=== PATIENT | female | born 1980 | race Caucasian/White ===

== ENCOUNTER 2023-03-08 21:44 | Emergency (ER) | payer MEDICARE, MEDICAID ==
[~2023-03-08] VITALS: Ht 162.6 cm; Wt 71.8 kg
[~2023-03-08 21:44] MED LIST: CELEXA10 MG PO; CIPRO 500MG TA500 MG PO; CLONAZEPAM1 MG PO; CLONIDINE0.1 MG PO; GEODON80 MG PO; INDERAL10 MG PO; PYRIDIUM200 M1 PO; TRAZADONE HYDR100 MG PO
[2023-03-08 22:24] LABS: HEMATOCRIT 33.1 % (37.0-47.0); HEMOGLOBIN 10.9 g/dL (12.5-16.0); MEAN CELL VOLUME 88 fl (78-100); MEAN CORPUSCULAR HEMOGLOBIN 29 pg (27-31); MEAN CORPUSCULAR HGB CONC 33 g/dL (33-37); MEAN PLATELET VOLUME 9.6 fl (7.4-10.4); PLATELET COUNT 440 K/mm3 (130-400); RED BLOOD COUNT 3.78 M/mm3 (4.10-5.30)
[2023-03-08 22:29] LABS: ALBUMIN 4.5 g/dL (3.5-5.0)
[2023-03-08 22:31] LABS: CALCIUM 10.2 mg/dL (8.3-10.5)
[2023-03-08 22:32] LABS: TOTAL PROTEIN 8.8 g/dL (6.4-8.3)
[2023-03-08 22:34] LABS: TOTAL BILIRUBIN 0.6 mg/dL (0.2-1.2)
[2023-03-08 22:47] LABS: TROPONIN-I 0.057 ng/mL (0.00-0.033)
[2023-03-08 22:48] LABS: BAND 1 % (0-10); LYMPHOCYTE 2 % (20-51); MONOCYTE 4 % (3-10); NEUTROPHILS 92 % (42-75)
[2023-03-09 00:07] LABS: URINE APPEARANCE OTHER (CLEAR); URINE COLOR YELLOW (YELLOW)
[2023-03-09 00:08] LABS: URINE BILIRUBIN NEGATIVE (NEGATIVE); URINE BLOOD TRACE-INTACT (NEGATIVE); URINE GLUCOSE NEGATIVE (NEGATIVE); URINE KETONE NEGATIVE (NEGATIVE); URINE LEUKOCYTE ESTERASE NEGATIVE (NEGATIVE); URINE NITRATE NEGATIVE (NEGATIVE); URINE PROTEIN(semi-quant) NEGATIVE (NEGATIVE); URINE WBC 0-1 /hpf (0-3)
[2023-03-09 00:35] VITALS: BP 101/71
[2023-03-09] MEDS ORDERED: AMIODARONE200 MG PO (03:42)
[2023-03-09] MEDS ORDERED: BUMEX 1MG TA1 MG/TA1 PO (03:44)
[2023-03-09] MEDS ORDERED: WELLBUTRIN XL300 M1 PO (03:46)
[2023-03-09] MEDS ORDERED: DEXLANSOPRAZOLE60 MG PO (03:46)
[2023-03-09] MEDS ORDERED: WARFARIN SOD2 MG PO (03:50)
[2023-03-09] MEDS ORDERED: MIDODRINE HCL10 MG PO (03:52)
[2023-03-09] MEDS ORDERED: ONDANSETRON HYDR4 MG PO (03:53)
[2023-03-09] MEDS ORDERED: POTASSIUM CHLO20 ME4 PO (03:55)
[2023-03-09] MEDS ORDERED: ALDACTONE 25MG25 MG PO (03:57)
[2023-03-09] MEDS ORDERED: GABAPENTIN400 M2 PO (03:58)
[2023-03-09] MEDS ORDERED: KETOCONAZOLE 1120 ML TP (03:59)
[2023-03-09] MEDS ORDERED: LORAZEPAM0.5 M1 PO (04:01)
[2023-03-09] MEDS ORDERED: METOLAZONE5 MG PO (04:06)
[2023-03-09] MEDS ORDERED: ASPIRIN 81M81 MG/TA2 PO (04:07)
[2023-03-09] MEDS ORDERED: ACETAMINOPHEN325 M1 PO (04:08)
[2023-03-09] MEDS ORDERED: FOLIC ACID1 MG PO (04:09)
[2023-03-09] MEDS ORDERED: VITAMIN K2 (M100 MCG PO (04:10)
[2023-03-09] MEDS ORDERED: ONE-A-DAY ACTIV1 TAB PO (04:12)
[2023-03-09] MEDS ORDERED: SENNA8.6 M1 PO (04:13)
[2023-03-09] MEDS ORDERED: MAGNESIUM OXID400 M1 PO (04:14)
== END 2023-03-09 00:35 | disposition short-term general hospital (02) ==
LOC: ED 21:44
PROVIDERS: Family Medicine; Physician Assistant
DX: I38 Endocarditis, valve unspecified (principal); E87.6 Hypokalemia; N18.6 End stage renal disease; D72.829 Elevated white blood cell count, unspecified; R79.89 Other specified abnormal findings of blood chemistry; Z87.442 Personal history of urinary calculi